=== PATIENT | female | born 1955 | race Caucasian/White ===

== ENCOUNTER → 2018-04-05 08:31 | Outpatient (CLI) | payer OTHER, SELFPAY | PROVIDERS: Family Provider Family Medicine; PCP Family Medicine; Visit Provider Obstetrics & Gynecology | DX: Z12.31 Encounter for screening mammogram for malignant neoplasm of breast (principal) | CPT/HCPCS: 77063; 77067 ==

== ENCOUNTER → 2018-05-04 09:29 | Outpatient (CLI) | payer OTHER, SELFPAY ==
[2018-05-04 12:19] LABS: Absolute Lymphocyte Count 0.92 X10^3/ul (0.83-4.51); Absolute Neutrophil Count 3.7 X10^3/uL (2.0-7.7); Basophil# 0.01 X10^3/uL; Basophil% 0.2 % (0-1); Eosinophil# 0.14 X10^3/uL; Eosinophils% 2.8 % (0-5); Hematocrit 36.9 % (37-47); Hemoglobin 12.2 g/dl (12.0-15.0); Lymphocyte # 0.92 X10^3/ul (4.0); Lymphocyte % 18.1 % (19-41); Mean Corp Hgb Conc 33.1 g/gl (32-36); Mean Corpuscular Hgb 31.3 pg (27.0-32.0); Mean Corpuscular Volume 94.6 fL (81-99); Mean Platelet Vol. 10.7 fl (6.2-12.0); Monocyte# 0.33 X10^3/uL; Monocyte% 6.5 % (0-10); Neutrophil # 3.69 X10^3/uL (2.7-7.7); Neutrophil % 72.4 % (47-70); Platelet Count 158 K/mm3 (150-450); RBC Distribution Width CV 12.7 % (11.6-14.6); RBC Distribution Width SD 42.9 fl (35.1-43.9); White Blood Count 5.1 K/mm3 (4.4-11.0)
[2018-05-04 12:20] LABS: POSITIVE COUNT NO; POSITIVE DIFFERENTIAL NO; POSITIVE MORPHOLOGY NO
[2018-05-04 12:28] LABS: Vitamin D,25 Hydroxy 44.3 ng/mL (29.95-100.01)
[2018-05-04 12:29] LABS: ALB/GLOB Ratio 1.1 RATIO (0.9-2.4); AST(SGOT) 33 U/L (15-37); Alanine Aminotransfer ALT/SGPT 25 U/L (13-56); Albumin, Serum 3.4 g/dL (3.2-5.0); Alkaline Phosphatase 76 U/L (45-117); Anion Gap 6 (5-15); BUN 18 mg/dL (7-18); BUN/Creat Ratio 20.5 RATIO (10-20); Calcium,Total 8.3 mg/dL (8.5-10.1); Chloride 108 mmol/L (98-107); Cholesterol 169 mg/dL (200); Creatinine, Serum 0.88 mg/dL (0.55-1.02); EST Glomerular Filtration Rate 69 mL/min (>60); Est Glom Filt Rate - Afr Amer 83 mL/min (>60); Globulin 3.2 g/dL (2.2-4.2); Glucose 81 mg/dL (74-106); High Density Lipoprotein 65 mg/dL; Potassium 3.8 mmol/L (3.5-5.1); Protein, Total 6.6 g/dL (6.4-8.2); Sodium Level 143 mmol/L (136-145); T4 Free Direct 1.18 ng/dL (0.76-1.46); Triglycerides 74 mg/dL; Very Low Density Lipoprotein 15 mg/dL (5-40)
[2018-05-05 09:01] LABS: Hep C Antibodies <0.1 s/co ratio (0.0-0.9)
== END ==
PROVIDERS: Family Provider Family Medicine; PCP Family Medicine; Visit Provider Family Medicine
DX: Z00.01 Encounter for general adult medical examination with abnormal findings (principal); I47.1 Supraventricular tachycardia; M81.0 Age-related osteoporosis without current pathological fracture; R53.83 Other fatigue
CPT/HCPCS: 36415; 80053; 80061; 82306; 84439; 84443; 85025; 86803

== ENCOUNTER → 2018-11-21 14:18 | Outpatient (CLI) | payer MEDICARE, BC, SELFPAY | PROVIDERS: Family Provider Family Medicine; PCP Family Medicine; Visit Provider Family Medicine | DX: J20.9 Acute bronchitis, unspecified (principal) | CPT/HCPCS: 87070; 87077; 87205; 87633 ==

== ENCOUNTER → 2019-04-09 | Outpatient (CLI) | payer MEDICARE, BC, SELFPAY ==
[2018-12-12 14:00] VITALS: BMI 18.7
--- NOTE | 2019-04-09 07:58 | BI_ITS ---
MAMMOGRAPHY - BILATERAL SCREENING REASON FOR EXAM: Female, 63 years old. Routine annual screening examination. PERTINENT HISTORY: Grandmother with breast cancer. Remote right stereotactic breast biopsy. TECHNIQUE: Digital bilateral breast ibrahima (3D mammographic acquisition) in the CC and MLO projections. 2-D mediolateral oblique (MLO) and craniocaudad (CC) views of both breasts were obtained. CAD: Full Field Digital Mammography with Computer Added Detection was performed. COMPARISON: Comparison is made with prior study April 05, 2018 and March 02, 2017. FINDINGS: Breast Composition: The breasts are extremely dense, which lowers the sensitivity of mammography. There are no dominant masses or suspicious calcifications. A tissue clip marker is seen in the deep upper lateral portion of the right breast. This is unchanged. No other significant abnormalities are identified. There has been no significant change since the prior study. BI/SCREEN MAMM (CAD) W/IBRAHIMA BILAT IMPRESSION: Stable bilateral screening mammogram. Yearly follow-up mammogram recommended. (A) ASSESSMENT CATEGORY: BIRADS Category 2: Benign. A letter regarding these results will be sent to the patient by the facility within 30 days. Approximately 10% of breast cancers are not detected by mammography. A normal mammogram should not delay biopsy of a clinically suspicious abnormality. [id number] Electronically Signed: Balbir Gamino, at 8:52 EDT , Service support ,
== END | disposition home or self-care (01) ==
LOC: OPBI 07:56
PROVIDERS: Family Provider Family Medicine; PCP Family Medicine; Referring Provider Obstetrics & Gynecology; Visit Provider Obstetrics & Gynecology
DX: Z12.31 Encounter for screening mammogram for malignant neoplasm of breast (principal)
CPT/HCPCS: 77063; 77067

== ENCOUNTER → 2019-05-25 12:16 | Outpatient (CLI) | payer MEDICARE, BC, SELFPAY ==
[2018-12-12 14:00] VITALS: BMI 18.7
[2019-05-25 12:46] LABS: Absolute Lymphocyte Count 1.26 X10^3/uL (0.83-4.51); Basophil# 0.02 X10^3/uL; Basophil% 0.3 % (0-1); Eosinophils% 1.5 % (0-5); Hematocrit 40.9 % (37-47); Hemoglobin 13.2 g/dL (12.0-15.0); Lymphocyte # 1.26 X10^3/ul (4.0); Lymphocyte % 18.7 % (19-41); Mean Corp Hgb Conc 32.3 g/dL (32-36); Mean Corpuscular Hgb 30.6 pg (27.0-32.0); Mean Corpuscular Volume 94.7 fL (81-99); Mean Platelet Vol. 10.3 fl (6.2-12.0); Monocyte% 4.5 % (0-10); NRBC Flagged by Analyzer 0 % (0-5); Neutrophil # 5.04 X10^3/uL (2.7-7.7); Neutrophil % 74.7 % (47-70); Platelet Count 171 K/mm3 (150-450); RBC Distribution Width CV 12.8 % (11.6-14.6); RBC Distribution Width SD 45.2 fl (35.1-43.9); Red Blood Count 4.32 M/mm3 (4.2-5.4); White Blood Count 6.7 K/mm3 (4.4-11.0)
[2019-05-25 13:37] LABS: ALB/GLOB Ratio 1.1 RATIO (0.9-2.4); AST(SGOT) 28 U/L (15-37); Alanine Aminotransfer ALT/SGPT 20 U/L (13-56); Albumin, Serum 3.8 g/dL (3.2-5.0); Alkaline Phosphatase 91 U/L (45-117); Anion Gap 4 (5-15); BUN 20 mg/dL (7-18); BUN/Creat Ratio 20.5 RATIO (10-20); Calcium,Total 9.6 mg/dL (8.5-10.1); Chloride 106 mmol/L (98-107); Cholesterol 206 mg/dL (200); Creatinine, Serum 0.98 mg/dL (0.55-1.02); EST Glomerular Filtration Rate 61 mL/min (>60); Est Glom Filt Rate - Afr Amer 73 mL/min (>60); Globulin 3.6 g/dL (2.2-4.2); Glucose 92 mg/dL (74-106); High Density Lipoprotein 79 mg/dL; Potassium 3.9 mmol/L (3.5-5.1); Protein, Total 7.4 g/dL (6.4-8.2); Sodium Level 140 mmol/L (136-145); Thyroid Stim Hormone (TSH) 2.34 uIU/mL (0.358-3.74); Triglycerides 116 mg/dL; Very Low Density Lipoprotein 23 mg/dL (5-40)
[2019-05-27 09:00] LABS: Vitamin D,25 Hydroxy 51.8 ng/mL (29.95-100.01)
== END ==
PROVIDERS: Family Provider Family Medicine; PCP Family Medicine; Referring Provider Family Medicine; Visit Provider Family Medicine
DX: E78.5 Hyperlipidemia, unspecified (principal); R53.83 Other fatigue; M81.0 Age-related osteoporosis without current pathological fracture
CPT/HCPCS: 36415; 80053; 80061; 82306; 84443; 85025

== ENCOUNTER → 2019-08-05 11:11 | Outpatient (CLI) | payer MEDICARE, BC, SELFPAY ==
[2018-12-12 14:00] VITALS: BMI 18.7
== END ==
PROVIDERS: Family Provider Family Medicine; PCP Family Medicine; Visit Provider Family Medicine
DX: J20.9 Acute bronchitis, unspecified (principal)
CPT/HCPCS: 87070; 87077; 87205; 87633

== ENCOUNTER → 2020-05-22 07:50 | Outpatient (CLI) | payer MEDICARE, BC, SELFPAY ==
[2019-12-13 13:18] VITALS: BMI 18.7
--- NOTE | 2020-05-22 08:09 | BI_ITS ---
MAMMOGRAPHY - BILATERAL SCREENING REASON FOR EXAM: Female, 64 years old. Routine annual screening examination. PERTINENT HISTORY: Grandmother with breast cancer. Remote right stereotactic breast biopsy. TECHNIQUE: Digital bilateral breast ibrahima (3D mammographic acquisition) in the CC and MLO projections. 2-D mediolateral oblique (MLO) and craniocaudad (CC) views of both breasts were obtained. CAD: Full Field Digital Mammography with Computer Added Detection was performed. COMPARISON: Comparison is made with prior study dated 04/09/2019 and 04/05/2018. FINDINGS: Breast Composition: The breasts are extremely dense, which lowers the sensitivity of mammography. There are no dominant masses or suspicious calcifications. A tissue clip marker is once again seen in the deep upper lateral aspect of No other significant abnormalities are identified. There has been no significant change since the prior study. BI/SCREEN MAMM (CAD) W/IBRAHIMA BILAT IMPRESSION: Stable bilateral screening mammogram. Yearly follow-up mammogram recommended. (A) ASSESSMENT CATEGORY: BIRADS Category 2: Benign. A letter regarding these results will be sent to the patient by the facility within 30 days. Approximately 10% of breast cancers are not detected by mammography. A normal mammogram should not delay biopsy of a clinically suspicious abnormality. [id number] Electronically Signed: Balbir Gamino, at 13:29 EDT , Service support ,
== END ==
PROVIDERS: PCP Family Medicine; Referring Provider Obstetrics & Gynecology; Visit Provider Obstetrics & Gynecology
DX: Z12.31 Encounter for screening mammogram for malignant neoplasm of breast (principal)
CPT/HCPCS: 77063; 77067

== ENCOUNTER → 2021-05-25 08:23 | Outpatient (CLI) | payer MEDICARE, BC, SELFPAY ==
--- NOTE | 2021-05-25 08:26 | BI_ITS ---
MAMMOGRAPHY - BILATERAL SCREENING REASON FOR EXAM: Female, 66 years old. Routine annual screening examination. PERTINENT HISTORY: Grandmother with breast cancer. Remote right stereotactic breast biopsy. TECHNIQUE: Digital bilateral breast ibrahima (3D mammographic acquisition) in the CC and MLO projections. 2-D mediolateral oblique (MLO) and craniocaudad (CC) views of both breasts were obtained. CAD: Full Field Digital Mammography with Computer Added Detection was performed. COMPARISON: Comparison is made with prior study to 05/22/2020 and 04/09/2019. FINDINGS: Breast Composition: The breasts are extremely dense, which lowers the sensitivity of mammography. There are no dominant masses or suspicious calcifications. A tissue clip marker is once again seen in the deep upper lateral aspect of the right breast. No other significant abnormalities are identified. There has been no significant change since the prior study. BI/SCRN MAMM (CAD)W/IBRAHIMA BILAT IMPRESSION: Stable bilateral screening mammogram. Yearly follow-up mammogram recommended. (A) ASSESSMENT CATEGORY: BIRADS Category 2: Benign. A letter regarding these results will be sent to the patient by the facility within 30 days. Approximately 10% of breast cancers are not detected by mammography. A normal mammogram should not delay biopsy of a clinically suspicious abnormality. [id number] Electronically Signed: Balbir Gamino MD at 9:21 EDT , Service support ,
== END ==
PROVIDERS: PCP Family Medicine; Referring Provider Obstetrics & Gynecology; Visit Provider Obstetrics & Gynecology
DX: Z12.31 Encounter for screening mammogram for malignant neoplasm of breast (principal)
CPT/HCPCS: 77063; 77067

== ENCOUNTER → 2021-07-06 09:37 | Outpatient (CLI) | payer MEDICARE, BC, SELFPAY ==
[2021-07-06 10:03] LABS: Absolute Lymphocyte Count 1.14 X10^3/uL (0.83-4.51); Absolute Neutrophil Count 4.8 X10^3/uL (2.0-7.7); Basophil# 0.04 X10^3/uL; Basophil% 0.6 % (0-1); Eosinophil# 0.15 X10^3/uL; Eosinophils% 2.3 % (0-5); Hematocrit 40.7 % (37-47); Lymphocyte # 1.14 X10^3/ul (0.83-4.51); Lymphocyte % 17.5 % (19-41); Mean Corp Hgb Conc 31.9 g/dL (32-36); Mean Corpuscular Hgb 30.7 pg (27.0-32.0); Mean Platelet Vol. 10.4 fl (6.2-12.0); Monocyte# 0.39 X10^3/uL; NRBC Flagged by Analyzer 0 % (0-5); Neutrophil # 4.79 X10^3/uL (2.7-7.7); Neutrophil % 73.3 % (47-70); Platelet Count 209 K/mm3 (150-450); RBC Distribution Width CV 12.8 % (11.6-14.6); RBC Distribution Width SD 45.7 fl (35.1-43.9); Red Blood Count 4.24 M/mm3 (4.2-5.4); White Blood Count 6.5 K/mm3 (4.4-11.0)
[2021-07-06 11:14] LABS: Anion Gap 6 (5-15); BUN 17 mg/dL (7-18); BUN/Creat Ratio 18.5 RATIO (10-20); Calcium,Total 8.9 mg/dL (8.5-10.1); Chloride 110 mmol/L (98-107); Creatinine, Serum 0.92 mg/dL (0.55-1.02); EST Glomerular Filtration Rate 65 mL/min (>60); Est Glom Filt Rate - Afr Amer 78 mL/min (>60); Free T3 2.8 pg/mL (2.18-3.98); Glucose 97 mg/dL (74-106); Magnesium 2.4 mg/dL (1.6-2.6); Potassium 4.1 mmol/L (3.5-5.1); Sodium Level 142 mmol/L (136-145); T4 Free Direct 1.08 ng/dL (0.76-1.46); Thyroid Stim Hormone (TSH) 2.41 uIU/mL (0.358-3.74)
== END ==
PROVIDERS: PCP Family Medicine; Referring Provider Nurse Practitioner Gerontology; Visit Provider Nurse Practitioner Gerontology
DX: R00.2 Palpitations (principal)
CPT/HCPCS: 36415; 80048; 83735; 84439; 84443; 84481; 85025

== ENCOUNTER → 2021-07-27 09:48 | Outpatient (CLI) | payer MEDICARE, BC, SELFPAY ==
--- NOTE | 2021-07-27 09:50 | ECHOD_ITS ---
Reason For Study: MVP Procedure This was a 2D Doppler, Color Flow transthoracic echocardiogram. Exam performed in department. Left Ventricle Normal LV size. Left ventricular systolic function is normal. The estimated ejection fraction is 60 %. No evidence for diastolic dysfunction. No regional wall motion abnormalities noted. Right Ventricle Normal RV size. Normal systolic function. Atria Normal left atrium. Normal right atrium. No doppler evidence for ASD. Mitral Valve There is no mitral annular calcification. Mild mitral valve prolapse, posterior leaflet. Mild (1+) mitral valve insufficiency. Tricuspid Valve Normal tricuspid valve. Trivial tricuspid valve insufficiency. Unable to estimate RV systolic pressure due to insufficient tricuspid regurgitant envelope. Aortic Valve Trisinus/trileaflet aortic valve. Mild diffuse aortic valve thickening. Pulmonic Valve The pulmonic valve is not well visualized. Great Vessels Normal sized aortic root. Pericardium/Pleural No pericardial effusion. MMode/2D Measurements & Calculations LVIDd: 4.7 cm IVSd: 0.80 cm Ao root diam: 2.6 cm LVIDs: 3.0 cm LVPWd: 0.72 cm RVDd: 2.8 cm FS: 36.4 % LAV(MOD-bp): 32.4 ml LVAd ap4: 22.7 cm2 LVAd ap2: 22.6 cm2 LAV(MOD-bp) Indexed: 21.4 ml/m2 LVLd ap4: 6.2 cm LVLd ap2: 6.2 cm LAV(MOD-sp2): 34.6 ml EDV(MOD-sp4): 71.2 ml EDV(MOD-sp2): 72.8 ml LAV(MOD-sp4): 30.0 ml EDV(sp4-el): 71.0 ml EDV(sp2-el): 70.1 ml LVAs ap4: 14.0 cm2 LVAs ap2: 12.4 cm2 LVLs ap4: 5.5 cm LVLs ap2: 5.1 cm ESV(MOD-sp4): 31.0 ml ESV(MOD-sp2): 25.7 ml ESV(sp4-el): 30.6 ml ESV(sp2-el): 25.3 ml EF(MOD-sp4): 56.4 % EF(MOD-sp2): 64.7 % EF(sp4-el): 56.9 % SV(MOD-sp4): 40.2 ml SV(MOD-sp2): 47.1 ml SV(sp4-el): 40.4 ml LA dimension(2D): 3.0 cm LA A4 area: 12.2 cm2 RA A4 area: 11.5 cm2 Doppler Measurements & Calculations MV E max jorge luis: 65.4 cm/sec Lat Peak E' Jorge Luis: 13.0 cm/sec Med Peak E' Jorge Luis: 7.3 cm/sec MV A max jorge luis: 50.3 cm/sec E/E' lat: 5.0 E/E' med: 8.9 MV E/A: 1.3 Ao V2 max: 131.2 cm/sec LV V1 max: 98.1 cm/sec PA V2 max: 73.2 cm/sec Ao max P.9 mmHg LV V1 max P.8 mmHg ECHO/Echo Complete Interpretation Summary Left ventricular systolic function is normal. The estimated ejection fraction is 60 %. Mild mitral valve prolapse, posterior leaflet Mild (1+) mitral valve insufficiency. Trivial tricuspid valve insufficiency. Mild diffuse aortic valve thickening. Unable to estimate RV systolic pressure due to insufficient tricuspid regurgita nt envelope. No evidence for diastolic dysfunction. Ordering Physician: Alexia Hairston Referring Physician: Jay Gallego Performed By: Rebecca Corbett RDCS
== END ==
PROVIDERS: PCP Family Medicine; Referring Provider Nurse Practitioner Gerontology; Visit Provider Nurse Practitioner Gerontology
DX: I34.1 Nonrheumatic mitral (valve) prolapse (principal)
CPT/HCPCS: 93225; 93226; 93306

== ENCOUNTER 2021-09-27 16:12 | Outpatient (CLI) | payer MEDICARE, BC, SELFPAY | END 2021-09-27 23:59 | disposition home or self-care (01) | PROVIDERS: PCP Family Medicine; Visit Provider Student in an Organized Health Care Education/Training Program | DX: N77.1 Vaginitis, vulvitis and vulvovaginitis in diseases classified elsewhere (principal) ==

== ENCOUNTER → 2022-06-07 | Outpatient (CLI) | payer MEDICARE, BC, SELFPAY ==
--- NOTE | 2022-06-07 08:08 | BI_ITS ---
MAMMOGRAPHY - BILATERAL SCREENING REASON FOR EXAM: Female, 67 years old. Routine annual screening examination. PERTINENT HISTORY: Grandmother with breast cancer. Prior right stereotactic breast biopsy. TECHNIQUE: Digital bilateral breast ibrahima (3D mammographic acquisition) in the CC and MLO projections. 2-D mediolateral oblique (MLO) and craniocaudad (CC) views of both breasts were obtained. CAD: Full Field Digital Mammography with Computer Added Detection was performed. COMPARISON: Comparison is made with prior study dated 05/25/2021 and 05/22/2020. FINDINGS: Breast Composition: The breasts are extremely dense, which lowers the sensitivity of mammography. There are no dominant masses or suspicious calcifications. A tissue clip marker is seen in the deep upper lateral aspect of the right breast. No other significant abnormalities are identified. There has been no significant change since the prior study. BI/SCRN MAMM (CAD)W/IBRAHIMA BILAT IMPRESSION: Stable bilateral screening mammogram. Yearly follow-up mammogram recommended. (A) ASSESSMENT CATEGORY: BIRADS Category 2: Benign. A letter regarding these results will be sent to the patient by the facility within 30 days. Approximately 10% of breast cancers are not detected by mammography. A normal mammogram should not delay biopsy of a clinically suspicious abnormality. [id number] Electronically Signed: Balbir Gamino MD at 8:37 EDT ,
== END | disposition home or self-care (01) ==
LOC: OPBI 08:07
PROVIDERS: PCP Family Medicine; Visit Provider Family Medicine
DX: Z12.31 Encounter for screening mammogram for malignant neoplasm of breast (principal); Z80.3 Family history of malignant neoplasm of breast
CPT/HCPCS: 77063; 77067

== ENCOUNTER → 2022-06-27 | Outpatient (CLI) | payer MEDICARE, BC, SELFPAY ==
[2022-06-27 12:23] LABS: Vitamin D,25 Hydroxy 39.2 ng/mL
[2022-06-27 12:26] LABS: ALB/GLOB Ratio 1.1 RATIO (0.9-2.4); AST(SGOT) 28 U/L (15-37); Alanine Aminotransfer ALT/SGPT 19 U/L (13-56); Albumin, Serum 3.6 g/dL (3.2-5.0); Alkaline Phosphatase 92 U/L (45-117); Anion Gap 8 (5-15); BUN 18 mg/dL (7-18); BUN/Creat Ratio 19.2 RATIO (10-20); Calcium,Total 9.1 mg/dL (8.5-10.1); Chloride 106 mmol/L (98-107); Cholesterol 210 mg/dL (200); Creatinine, Serum 0.94 mg/dL (0.55-1.02); EST Glomerular Filtration Rate 63 mL/min (>60); Est Glom Filt Rate - Afr Amer 76 mL/min (>60); Globulin 3.3 g/dL (2.2-4.2); Glucose 93 mg/dL (74-106); High Density Lipoprotein 75 mg/dL; Potassium 4.2 mmol/L (3.5-5.1); Protein, Total 6.9 g/dL (6.4-8.2); Sodium Level 141 mmol/L (136-145); Triglycerides 142 mg/dL; Very Low Density Lipoprotein 28 mg/dL (5-40)
[2022-06-27 12:38] LABS: Absolute Lymphocyte Count 1.16 X10^3/uL (0.83-4.51); Absolute Neutrophil Count 4.7 X10^3/uL (2.0-7.7); Basophil# 0.02 X10^3/uL; Basophil% 0.3 % (0-1); Eosinophil# 0.11 X10^3/uL; Eosinophils% 1.7 % (0-5); Hematocrit 39.1 % (37-47); Hemoglobin 13.1 g/dL (12.0-15.0); Lymphocyte # 1.16 X10^3/ul (0.83-4.51); Lymphocyte % 18.2 % (19-41); Mean Corp Hgb Conc 33.5 g/dL (32-36); Mean Corpuscular Hgb 31.6 pg (27.0-32.0); Mean Corpuscular Volume 94.4 fL (81-99); Mean Platelet Vol. 10.6 fl (6.2-12.0); Monocyte# 0.36 X10^3/uL; Monocyte% 5.7 % (0-10); NRBC Flagged by Analyzer 0 % (0-5); Neutrophil % 73.9 % (47-70); Platelet Count 208 K/mm3 (150-450); RBC Distribution Width CV 12.8 % (11.6-14.6); RBC Distribution Width SD 44.3 fl (35.1-43.9); Red Blood Count 4.14 M/mm3 (4.2-5.4); White Blood Count 6.4 K/mm3 (4.4-11.0)
== END | disposition home or self-care (01) ==
LOC: BFHLAB 10:32
PROVIDERS: PCP Family Medicine; Visit Provider Family Medicine
DX: E78.5 Hyperlipidemia, unspecified (principal); I47.1 Supraventricular tachycardia; E87.8 Other disorders of electrolyte and fluid balance, not elsewhere classified; Z51.81 Encounter for therapeutic drug level monitoring; M81.0 Age-related osteoporosis without current pathological fracture
CPT/HCPCS: 36415; 80053; 80061; 82306; 85025

== ENCOUNTER → 2022-07-07 | Outpatient (CLI) | payer MEDICARE, BC, SELFPAY ==
--- NOTE | 2022-07-07 10:22 | BD_ITS ---
STUDY: DUAL ENERGY X-RAY ABSORPTIOMETRY / DXA REASON FOR EXAM: Female, 67 years old. M810 TECHNIQUE: Bone Mineral Density (BMD) measurements of lumbar spine and bilateral hips were obtained. COMPARISON: Comparison is made with prior examination dated 12/24/2009. FINDINGS: Lumbar Spine (L1-L4): g/cm2 (0.844) / T-score (-2.1) / Z-score (0.0) Findings are suggestive of osteopenia with a moderate fracture risk. Left Femur Total: g/cm2 (0.593) / T-score (-2.9) / Z-score (-1.4) Left Femoral Neck: g/cm2 (0.546) / T-score (-2.7) / Z-score (-1.0) Right Femur Total: g/cm2 (0.621) / T-score (-2.6) / Z-score (-1.2) Right Femoral Neck: g/cm2 (0.575) / T-score (-2.5) / Z-score (0.7) Right Forearm: g/cm2 ( ) / T-score ( ) / Z-score ( ) Left Forearm: g/cm2 ( ) / T-score ( ) / Z-score ( ) The T-Scores on the most recent prior examination were: Lumbar Spine (L1-L4): There has been worsening of bone density since the previous examination. Left Femur Total: which represents a worsening of 8.2%. Right Femur Total: which represents a worsening of 4.2%. BD/Dexa Bone Density Study IMPRESSION: The patient is considered osteoporotic as outlined below according to World Jan Organization (WHO) criteria with a high fracture risk. There has been worsening of bone density since the previous examination. Reference Information: The T-score is the number of standard deviations above or below the standard which is normal for young adults at their peak bone mineral density. The World Health Organization (WHO) interprets the T-scores as follows: Above -1 Normal bone density Between -1 and -2.5 Osteopenia Equal to / or below -2.5 Osteoporosis As a practical clinical guideline, osteopenia may be graded as follows: Mild -1 through -1.5 Moderate -1.6 through -2.0 Severe -2.1 through -2.4 The Z-score is the number of standard deviations above or below age-matched controls. A Z-score of less than -1.5 would be considered abnormal. References: 1. NIH Osteoporosis and Related Bone Diseases www osteo.org 2. International Society for Clinical Densitometry www iscd.org 3. National Osteoporosis Foundation www nof.org Electronically Signed: Balbir Gamino MD at 9:46 EST ,
== END | disposition home or self-care (01) ==
LOC: OPBD 10:18
PROVIDERS: PCP Family Medicine; Referring Provider Family Medicine; Visit Provider Family Medicine
DX: M81.0 Age-related osteoporosis without current pathological fracture (principal)
CPT/HCPCS: 77080

== ENCOUNTER 2022-08-01 13:43 | Outpatient (CLI) | payer MEDICARE, BC, SELFPAY ==
--- NOTE | 2022-08-01 13:52 | CDU_ITS ---
Reason For Study: Carotid artery bruit Rt. Velocities/BP Lt. Velocities/BP Prox CCA 87.2/23.4 cm/sec. Prox CCA 91.2/20 cm/sec. Mid CCA 93.8/26.7 cm/sec. Mid CCA 72.8/20 cm/sec. Dist CCA 78.4/17.9 cm/sec. Dist CCA 64.2/18.8 cm/sec. Prox ICA 90.5/24.5 cm/sec. Prox ICA 79/20 cm/sec. Mid ICA 149.9/49 cm/sec. Mid ICA 82.6/29.8 cm/sec. Dist ICA 122.9/44.4 cm/sec. Dist ICA 112/27.9 cm/sec. Rt. ICA/CCA = 1.72. Lt. ICA/CCA = 1.54. Prox ECA 66.3/5.8 cm/sec. Prox ECA 99.2/13.3 cm/sec. Rt. Vert. 57.5/17.9 cm/sec. Lt. Vert. 70.7/14.6 cm/sec. Right Extracranial There is intimal thickening but no significant atherosclerotic plaque noted in the right common carotid artery. There is intimal thickening but no significant atherosclerotic plaque noted in the right internal carotid artery. There is intimal thickening but no significant atherosclerotic plaque noted in the right external carotid artery. Antegrade flow is noted in the right vertebral artery. Left Extracranial There is intimal thickening but no significant atherosclerotic plaque noted in the left common carotid artery. There is intimal thickening but no significant atherosclerotic plaque noted in the left internal carotid artery. There is intimal thickening but no significant atherosclerotic plaque noted in the left external carotid artery. Antegrade flow is noted in the left vertebral artery. Procedure Carotid Duplex 20125. This is a Carotid Duplex examination using B-mode, color flow and specral Doppler. Exam performed in department. VL/Carotid Duplex Ultrasound Interpretation Summary Normal right extracranial internal carotid. Elevated velocity with no visualize d plaque. Normal left extracranial internal carotid. Patent and antegrade vertebrals bilaterally. Ordering Physician: Panchito Drake Referring Physician: Jay Gallego Performed By: Marivel Valles RVT
== END 2022-08-01 23:59 | disposition home or self-care (01) ==
LOC: CVS 13:50
PROVIDERS: PCP Family Medicine; Visit Provider Internal Medicine Cardiovascular Disease
DX: R09.89 Other specified symptoms and signs involving the circulatory and respiratory systems (principal)
CPT/HCPCS: 93880

== ENCOUNTER → 2022-09-23 | Outpatient (CLI) | payer MEDICARE, BC, SELFPAY ==
[2022-09-23 12:27] LABS: ALB/GLOB Ratio 1.2 RATIO (0.9-2.4); AST(SGOT) 29 U/L (15-37); Alanine Aminotransfer ALT/SGPT 22 U/L (13-56); Albumin, Serum 3.9 g/dL (3.2-5.0); Alkaline Phosphatase 85 U/L (45-117); Anion Gap 7 (5-15); BUN 18 mg/dL (7-18); BUN/Creat Ratio 18.4 RATIO (10-20); Calcium,Total 9.8 mg/dL (8.5-10.1); Chloride 106 mmol/L (98-107); Creatinine, Serum 0.98 mg/dL (0.55-1.02); EST Glomerular Filtration Rate 60 mL/min (>60); Est Glom Filt Rate - Afr Amer 73 mL/min (>60); Globulin 3.2 g/dL (2.2-4.2); Glucose 94 mg/dL (74-106); Potassium 4.3 mmol/L (3.5-5.1); Protein, Total 7.1 g/dL (6.4-8.2); Sodium Level 143 mmol/L (136-145)
[2022-09-23 12:30] LABS: Vitamin D,25 Hydroxy 38.6 ng/mL
== END | disposition home or self-care (01) ==
LOC: BIMLAB 10:56
PROVIDERS: PCP Family Medicine; Referring Provider Internal Medicine Endocrinology, Diabetes & Metabolism; Visit Provider Internal Medicine Endocrinology, Diabetes & Metabolism
DX: M81.0 Age-related osteoporosis without current pathological fracture (principal); E59 Dietary selenium deficiency
CPT/HCPCS: 36415; 80053; 82306

== ENCOUNTER → 2022-09-30 | Outpatient (CLI) | payer MEDICARE, BC, SELFPAY ==
[2022-09-30 14:00] VITALS: BP 131/63; PULSE 70; RESP 16; TEMP 36.3; O2SAT 99; BMI 20.1
[2022-09-30] MEDS: 0.9% NaCl Peripheral Flush Adult/Peds IV (14:01)
[2022-09-30] MEDS: Zoledronic Acid 5 MG 100 ML 300 MG IV (14:06)
[2022-09-30 14:30] VITALS: BP 123/60; PULSE 72; RESP 16; TEMP 36.3; O2SAT 98
== END | disposition home or self-care (01) ==
LOC: MEDOUTP 13:49
PROVIDERS: PCP Family Medicine; Referring Provider Internal Medicine Endocrinology, Diabetes & Metabolism; Visit Provider Internal Medicine Endocrinology, Diabetes & Metabolism
DX: M81.0 Age-related osteoporosis without current pathological fracture (principal)
CPT/HCPCS: 96372; A4216; J3489

== ENCOUNTER 2022-10-01 20:19 | Emergency (ER) | payer MEDICARE, BC, SELFPAY ==
[2022-10-01] VITALS (15 sets, daily range): BP systolic 99–108; BP diastolic 55–64; PULSE 57–136; RESP 13–24; TEMP 36.1; O2SAT 95–99; BMI 21.4
--- NOTE | 2022-10-01 20:43 | EDS_ITS ---
HPI History of Present Illness Chief Complaint: Palpitations Detail of Chief Complaint: Rapid and irregular heartbeat Informant: patient Onset/Context/Timing Onset: Yesterday Context: Sudden Onset Timing: Continuous and Waxes and wanes Quality: Rapid and irregular Location: Chest Current Severity: Mild Maximum Severity: Mild Worsened by: Nothing Relieved by: Nothing Associated Symptoms Associated Symptoms: Lightheadedness Narrative Narrative: Patient is a 67-year-old woman with history of osteoporosis and received her first dose of Reclast. She states she was told that she may have flulike symptoms. There was no mention on the documentation was given regarding cardiac symptoms. She denies chest pressure, shortness of breath, dyspnea on exertion, orthopnea or PND. She denies nausea, diaphoresis or discomfort in her jaw, neck shoulders or upper extremities. She does have history of premature atrial contractions, palpitations, paroxysmal supraventricular tachycardia, pure hypercholesterolemia and left carotid bruit. As previously mentioned she received her first dose of medication for osteoporosis. Patient denies history of VTE. Patient denies leg pain, swelling discoloration. Patient has no risk factors for VTE Prior similar symptoms: Yes (Per documentation, old records) Recent Illness/Hospitalization: No PFSH PFS Medical History Hyperlipidemia Nonrheumatic mitral (valve) prolapse Osteoarthritis Osteoporosis PAC (premature atrial contraction) Palpitations Paroxysmal supraventricular tachycardia by electrocardiogram (ECG) Pure hypercholesterolemia Home Medications calcium phosphate 250 mg-vit D3 12.5 mcg (500 unit) chewable tablet 1 ea PO DAILY 07/18/17 [History Last Taken Unknown] nadolol 20 mg tablet See Rx Instructions .Route .COMPLEX #45 tabs 02/25/22 [Rx Last Taken Unknown] PB 8 probiotic PO 1XD 09/15/22 [History Last Taken Unknown] zoledronic acid 5 mg/100 mL in mannitol 5 %-water intravenous piggybck 1 ea .Route ONCE #100 mL 09/23/22 [Rx Last Taken Unknown] Allergy/AdvReac Type Severity Reaction Status Date / Time azithromycin Allergy Rash Verified 10/01/22 20:20 [From Zithromax Z-Bernard] clindamycin Allergy CDIFF Verified 10/01/22 20:20 Sulfa (Sulfonamide Allergy Rash Verified 10/01/22 20:20 Antibiotics) Family History Mother , CERVICAL Cancer Arthritis Depression Father Heart disease Grandmother Cancer Sister Cancer skin Surgical History History of bunionectomy of both great toes History of hysterectomy History of left heart catheterization (LHC) (~08/09/12) Social History (Updated 10/01/22 @ 20:[address] Salbador Rodriguez MD) household members: spouse Smoking Status: Never smoker alcohol intake: never substance use type: does not use caffeine: No what type of physical activity do you participate in: none seatbelt use: always do you feel safe at home: Yes ROS ROS ED Constitutional Constitutional ED: Denies chills, fever(s), subjective or sweats Eyes Eyes: Denies blurry vision, change in vision or diplopia ENT ENT ED: Denies ear pain, rhinorrhea or sore throat Cardiovascular Cardiovascular: Reports palpitations; Denies chest pain, orthopnea, paroxysmal nocturnal dyspnea or racing heartbeat Respiratory/Chest Respiratory/Chest: Denies cough, dyspnea, dyspnea on exertion, orthopnea or paroxysmal nocturnal dyspnea Gastrointestinal Gastrointestinal: Denies abdominal pain, melena, nausea or vomiting Genitourinary Genitourinary ED: Denies dysuria or hematuria Musculoskeletal Musculoskeletal: Denies arthralgias, back pain, myalgias or neck pain Integumentary Denies rash Neurologic Neurologic: Denies headache(s), paresthesias or weakness Endocrine Endocrinology: Denies cold intolerance or heat intolerance Hematologic/Lymphatic Hematologic/Lymphatic: Reports systems reviewed and no addt'l complaints, except as documented EXAM Physical Exam Const Vital Signs: 10/01/22 20:20 10/01/22 20:36 10/01/22 20:35 Temperature 97 F L Temperature Source Temporal Pulse Rate 57 L 104 H Respiratory Rate 14 22 H Respiratory Effort Normal Non-Labored Blood Pressure 104/64 Blood Pressure Mean 77 Pulse Ox 98 96 Oxygen Delivery Method Room Air 10/01/22 20:40 10/01/22 20:50 10/01/22 21:00 Temperature Temperature Source Pulse Rate 105 H 124 H 118 H Respiratory Rate 24 H 19 H 17 Respiratory Effort Blood Pressure Blood Pressure Mean Pulse Ox 97 97 95 Oxygen Delivery Method 10/01/22 21:01 10/01/22 21:10 10/01/22 21:21 Temperature Temperature Source Pulse Rate 105 H 136 H Respiratory Rate 21 H 18 Respiratory Effort Blood Pressure 99/63 108/55 L Blood Pressure Mean 75 72 Pulse Ox 96 95 Oxygen Delivery Method 10/01/22 21:32 10/01/22 21:40 10/01/22 21:50 Temperature Temperature Source Pulse Rate 113 H 105 H 105 H Respiratory Rate 13 16 17 Respiratory Effort Blood Pressure Blood Pressure Mean Pulse Ox 99 97 Oxygen Delivery Method 10/01/22 22:00 10/01/22 22:10 10/01/22 22:20 Temperature Temperature Source Pulse Rate 108 H 106 H 109 H Respiratory Rate 18 20 H 18 Respiratory Effort Blood Pressure Blood Pressure Mean Pulse Ox 95 96 96 Oxygen Delivery Method Positive well nourished and well developed General Appearance ED: well developed and NAD; Negative for cyanotic, diaphoretic or pallor HEENT Reports moist mucous membranes HEENT Narrative: Head is atraumatic normocephalic. Ears normal. Nares are patent. Posterior pharynx is unremarkable. Eyes PERRL and EOMs intact bilaterally General Eye ED: Negative for pale conjunctiva or scleral icterus Neck no lymphadenopathy, supple and no JVD Neck Narrative: Noted bruits noted on the left. Chest Wall inspection of chest normal and palpation of chest normal Resp normal respiratory effort and clear to auscultation bilaterally Cardio S1 normal heart sound, S2 normal heart sound and no murmurs Rate: tachycardic Rhythm: abnormal rhythm irregularly irregular GI normal to inspection, nondistended, normoactive bowel sounds, non-tender, non- distended and no masses; Negative for hepatosplenomegaly GI Narrative: There is no palpable pulsatile mass. There is no abdominal bruit. Back/Spine no CVA tenderness Back/Spine Narrative: Inspection of the back is unremarkable. Extremity normal to inspection Extremity Narrative: There is no asymmetry, swelling, discoloration, leg vein distention, palpable cords or tenderness along the distribution of the deep venous system. DP pulses 2+ and symmetric. Neuro oriented x3, CN's II-XII intact bilaterally and no sensory deficits noted Sensorium / Orientation: alert Psych mental status grossly normal Skin no wounds and skin turgor normal General Skin Exam: elasticity normal; Negative for jaundice or pallor MDM MDM MDM Narrative Medical decision making narrative: Monitor reveals fast irregular beat. Concerned this may represent paroxysmal atrial tachycardia versus supraventricular tachycardia. Will obtain CBC to rule out anemia. Basic metabolic panel to assess renal function electrolytes. EKG to rule out cardiac ischemia. Troponin was obtained as well. Since EKG reveals sinus tachycardia will obtain TSH and will treat with IV beta- rowdy Records from cardiology visits were reviewed. Patient does have history of left carotid bruit. She does have history of paroxysmal supraventricular tachycardia as well as palpitations. She is on nadolol one half tab daily. Patient did have a cardiac catheterization July 2012 at [facility] located in [facility]. This revealed no significant angiographic abnormalities. Patient had an echocardiogram performed July 27 2021. EF was 60%. Left ventricular function was normal. Unable to [place] left ventricular function. There was evidence of mitral valve prolapse, posterior leaflet and mild mitral valve insufficiency. Lab Data Attestation: I reviewed the patient's lab results. Lab results narrative: Hemogram is unremarkable. Basic metabolic panel is remarked for slight elevation creatinine of 1.06 with a GFR 55. Glucose is elevated 179. TSH is normal at 157. CO2 anion gap is normal. Patient was instructed to follow-up with her primary care doctor regarding her elevated blood sugar. She was instructed follow-up Dr. Drake because of the rapid heartbeat. Labs: Laboratory Results - last 24 hr 10/01/22 10/01/22 20:54 20:54 WBC 5.6 RBC 3.92 L Hgb 12.3 Hct 36.1 L MCV 92.1 MCH 31.4 MCHC 34.1 RDW Std Deviation 43.6 RDW Coeff of Zeenat 12.9 Plt Count 162 MPV 10.1 Sodium 144 Potassium 3.5 Chloride 108 H Carbon Dioxide 28.0 Anion Gap 8 BUN 23 H Creatinine 1.06 H Estim Creat Clear Calc 39.62 Est GFR (MDRD) Af Amer 66 Est GFR (MDRD) Non-Af 55 L BUN/Creatinine Ratio 21.7 H Glucose 179 H Calcium 8.6 Troponin I High Sens 6 TSH 1.57 Rhythm Strip Rhythm Strip: Sinus Tach (There are premature beats noted both atrial and ventricular. There was also a run of narrow complex tachycardia and may have represented paroxysmal supraventricular tachycardia versus paroxysmal atrial tachycardia. Rate was 130+.) EKG Initial EKG: Attestation: I personally reviewed and interpreted this EKG as follows: Interpretation: Sinus Tachycardia (Rate is 121. There are premature ventricular beats noted. WV interval is 192 ms. QRS duration 80 ms. QT duration 304 ms. Hobson is normal.) Treatment and Re-Evaluation Narrative: Patient was observed until 2024. Heart rate has improved after administration of IV metoprolol. Discharge Plan Triage Chief Complaint: Palpitations ED Provider: Salbador Rodriguez Dx/Rx/DC Orders Clinical Impression: Paroxysmal atrial tachycardia, Pure hypercholesterolemia, Bruit of left carotid artery, Osteoporosis, Palpitations, Orthostatic dizziness, Acute hyperglycemia Instructions: ED About Arrhythmias, ED Hyperglycemia New Susp Diabetes Prescriptions: No Action zoledronic fpls-cshomgss-spguh 5 mg/100 mL piggyback 1 ea .Route ONCE Qty: 100 0RF Rx Instructions: onceinfuse over 20 minutes PB 8 probiotic PO 1XD Rx Instructions: 2 tabs daily calcium phosphate-vitamin D3 1 EACH tablet,chewable 1 ea PO DAILY nadolol 20 mg tablet See Rx Instructions .ROUTE .COMPLEX Qty: 45 3RF Dose Instruction: TAKE 1/2 TABLET BY MOUTH DAILY Rx Instructions: TAKE 1/2 TABLET BY MOUTH DAILY Primary Care Provider: Jay Gallego Referrals: Jay Gallego DO [Primary Care Provider] - 5-7 Days Panchito Drake MD [Med Staff - Active Staff] - 5-7 Days Activity Restrictions/Additional Instructions: Increased nadolol from 1/2 tablet a day to 1 full tablet a day. Your blood sugar is elevated at 179. You will need to follow-up with Dr. Gallego for additional testing to evaluate for new onset diabetes. Disposition Disposition: Home, Self Care
--- NOTE | 2022-10-01 20:44 | EKG12_ITS ---
Test Reason : CP Blood Pressure : / mmHG Vent. Rate : 121 BPM Atrial Rate : 121 BPM P-R Int : 192 ms QRS Dur : 080 ms QT Int : 304 ms P-R-T Axes : 064 009 025 degrees QTc Int : 431 ms Sinus tachycardia with occasional Premature ventricular complexes Otherwise normal ECG Confirmed by ILEANA PAYNE, ANSON ([id number]), editor index APRIL VALDES ([id number]) on 10/03/2022 1:18:44 PM Referred By: BROOK Confirmed By:ANSON TEJEDA MD
[2022-10-01 21:11] LABS: Hematocrit 36.1 % (37-47); Hemoglobin 12.3 g/dL (12.0-15.0); Mean Corp Hgb Conc 34.1 g/dL (32-36); Mean Corpuscular Hgb 31.4 pg (27.0-32.0); Mean Corpuscular Volume 92.1 fL (81-99); Mean Platelet Vol. 10.1 fl (6.2-12.0); Platelet Count 162 K/mm3 (150-450); RBC Distribution Width CV 12.9 % (11.6-14.6); RBC Distribution Width SD 43.6 fl (35.1-43.9); Red Blood Count 3.92 M/mm3 (4.2-5.4); White Blood Count 5.6 K/mm3 (4.4-11.0)
[2022-10-01] MEDS: Metoprolol Tartrate 5 MG/5 ML Vial IV (21:33)
[2022-10-01 21:36] LABS: Anion Gap 8 (5-15); BUN 23 mg/dL (7-18); BUN/Creat Ratio 21.7 RATIO (10-20); Calcium,Total 8.6 mg/dL (8.5-10.1); Chloride 108 mmol/L (98-107); Creatinine, Serum 1.06 mg/dL (0.55-1.02); EST Glomerular Filtration Rate 55 mL/min (>60); Est Glom Filt Rate - Afr Amer 66 mL/min (>60); Estimated Creatinine Clearance 39.62 ml/min; Glucose 179 mg/dL (74-106); Potassium 3.5 mmol/L (3.5-5.1); Sodium Level 144 mmol/L (136-145); Thyroid Stim Hormone (TSH) 1.57 uIU/mL (0.358-3.74); Troponin-I HS 6 pg/mL (3.0-54.0)
== END 2022-10-01 22:48 | disposition home or self-care (01) ==
PROVIDERS: Emergency Provider Emergency Medicine; PCP Family Medicine; Visit Provider Emergency Medicine
DX: I47.1 Supraventricular tachycardia (principal); R73.9 Hyperglycemia, unspecified; R09.89 Other specified symptoms and signs involving the circulatory and respiratory systems; R42 Dizziness and giddiness; M81.0 Age-related osteoporosis without current pathological fracture; R00.2 Palpitations; I49.1 Atrial premature depolarization; I49.3 Ventricular premature depolarization; Z79.899 Other long term (current) drug therapy; M19.90 Unspecified osteoarthritis, unspecified site; E78.00 Pure hypercholesterolemia, unspecified
CPT/HCPCS: 80048; 84443; 84484; 85027; 93005; 96374; 99284; A4216

== ENCOUNTER → 2022-10-10 | Outpatient (CLI) | payer MEDICARE, BC, SELFPAY | END | disposition home or self-care (01) | LOC: PSN 08:57 | PROVIDERS: PCP Family Medicine; Visit Provider Nurse Practitioner Gerontology | DX: I47.1 Supraventricular tachycardia (principal); R00.2 Palpitations | CPT/HCPCS: 93225; 93226 ==

== ENCOUNTER → 2023-06-08 | Outpatient (CLI) | payer MEDICARE, BC, SELFPAY ==
--- NOTE | 2023-06-08 08:18 | BI_ITS ---
MAMMOGRAPHY - BILATERAL SCREENING REASON FOR EXAM: Female, 68 years old. Routine annual screening examination. PERTINENT HISTORY: Grandmother with breast cancer. Prior right stereotactic breast biopsy. TECHNIQUE: Digital bilateral breast ibrahima (3D mammographic acquisition) in the CC and MLO projections. 2-D mediolateral oblique (MLO) and craniocaudad (CC) views of both breasts were obtained. CAD: Full Field Digital Mammography with Computer Added Detection was performed. COMPARISON: Comparison is made with prior study dated June 07, 2022 and May 25, 2021. FINDINGS: Breast Composition: The breasts are extremely dense, which lowers the sensitivity of mammography. There are no dominant masses or suspicious calcifications. Tissue clip marker is seen in the deep upper lateral aspect of the No other significant abnormalities are identified. There has been no significant change since the prior study. BI/SCRN MAMM (CAD)W/IBRAHIMA BILAT IMPRESSION: Stable bilateral screening mammogram. Yearly follow-up mammogram recommended. (A) ASSESSMENT CATEGORY: BIRADS Category 2: Benign. A letter regarding these results will be sent to the patient by the facility within 30 days. Approximately 10% of breast cancers are not detected by mammography. A normal mammogram should not delay biopsy of a clinically suspicious abnormality. [id number] Electronically Signed: Balbir Gamino MD at 12:25 EDT ,
== END | disposition home or self-care (01) ==
PROVIDERS: PCP Family Medicine; Referring Provider Obstetrics & Gynecology; Visit Provider Obstetrics & Gynecology
DX: Z12.31 Encounter for screening mammogram for malignant neoplasm of breast (principal)
CPT/HCPCS: 77063; 77067

== ENCOUNTER → 2023-08-09 | Outpatient (CLI) | payer MEDICARE, BC, SELFPAY ==
--- NOTE | 2023-08-09 09:51 | RAD_ITS ---
INDICATION: LEFT HIP PAIN EXAMINATION/TECHNIQUE: X-RAY - XR Hip Unilateral with Pelvis when performed; 2-3 Views COMPARISON: FINDINGS: PELVIC BONES: No displaced fracture, destructive or sclerotic lesions. Note that overlapping bowel shadows may however obscure fine detail. Sacroiliac joints are unremarkable. No widening of the pubic symphysis. HIPS: The articular structures are unremarkable. No displaced fracture seen in this frontal view. SOFT TISSUES: No soft tissue swelling or gas. RAD/HIP, UNI W/ Pelvis 2-3 Views IMPRESSION: No evidence of displaced pelvic or hip fracture. Electronically Signed: Maty Mustafa MD at 23:14 EST Reading Location ID and State: [id number] / Tel , Service support ,
--- NOTE | 2023-08-09 09:51 | RAD_ITS ---
INDICATION: LEFT HIP PAIN EXAMINATION/TECHNIQUE: X-RAY - XR Spine Lumbar Min 4 Views COMPARISON: No relevant prior comparison study available FINDINGS: VERTEBRAE: Preserved vertebral body height. No fracture. No spondylolisthesis. Preservation of the normal lumbar lordosis. Mild diffuse facet arthropathy. Levoscoliosis. DISCS: Disc space narrowing at L1-L2. Prominent endplate osteophytes at the T12-L1 and L1-L2 levels. INCLUDED ABDOMEN: Included bowel gas pattern is non-obstructive. RAD/L/S Spine Min 4 Views IMPRESSION: No evidence of lumbar spinal fracture or spondylolisthesis. Moderate degenerative change of the upper lumbar spine. Electronically Signed: Albert Felix MD at 17:31 EST ,
== END | disposition home or self-care (01) ==
PROVIDERS: PCP Family Medicine; Referring Provider Family Medicine; Visit Provider Family Medicine
DX: M79.605 Pain in left leg (principal)
CPT/HCPCS: 72100; 72110; 73502

== ENCOUNTER → 2024-04-05 | Outpatient (CLI) | payer MEDICARE, BC, SELFPAY ==
--- NOTE | 2024-04-05 16:15 | MRI_ITS ---
STUDY: MRI LUMBAR SPINE WITHOUT CONTRAST REASON FOR EXAM: Female, 68 years old. LOW BACK AND L HIP PAIN, WORSENING WITH PT Lt hip pain x6-7 wks, NKi, scoliosis TECHNIQUE: Standardized fat and water weighted pulse sequences were obtained in the sagittal and axial planes. COMPARISON: X-ray the lumbar spine dated August 09, 2023 FINDINGS: Normal lumbar lordosis. Moderate levoscoliosis is present. No marrow edema or fracture or compression deformity is present. 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 Normal conus medullaris that terminates at the L1 level. T12-L1: Severe disc space narrowing with moderate Modic endplate degenerative signal. Diffuse disc osteophyte complex. Slight retrolisthesis of T12 on L1 of 2 to 3 mm. Mild right foraminal stenosis. Normal left neural foramen. Mild asymmetric facet joint hypertrophy. Normal central canal and bilateral lateral recesses. L1-2: Moderate to severe asymmetric disc space narrowing with a diffuse disc osteophyte complex in the midline and left side of the disc space as well as moderate Modic endplate degenerative signal. Retrolisthesis of L1 on L2 of 2 to 3 mm mild right foraminal stenosis with posterior nerve root impingement. Normal left neural foramen. Mild facet joint hypertrophy. Normal central canal and bilateral lateral recesses. L2-3: Minimal endplate spurring. Mild posterior disc space narrowing and annular bulging. Normal bilateral facet joints. Normal central canal and bilateral lateral recesses. Normal bilateral intervertebral neural foramina. L3-4: Diffuse disc desiccation and mild posterior disc space narrowing without bulging or herniation. Normal bilateral facet joints. Normal central canal and bilateral lateral recesses. Normal bilateral intervertebral neural foramina. L4-5: Normal endplates. Diffuse disc desiccation with mild asymmetric disc space narrowing and slight annular bulging eccentric to the left causing left lateral recess stenosis with nerve root impingement. Normal central canal and right lateral recess. Mild to moderate facet joint hypertrophy. Normal bilateral intervertebral neural foramina. L5-S1: Normal endplates. Diffuse disc desiccation with minimal asymmetric disc space narrowing and slight annular bulging. Normal bilateral facet joints. Normal central canal and bilateral lateral recesses. Normal bilateral intervertebral neural foramina. Normal visualized sacral ala. There is moderate paraspinal muscular atrophy. MRI/Spine Lumbar (Routine) IMPRESSION: 1. Multilevel degenerative changes, as described above. Electronically Signed: Jorge Winn MD at 9:23 EDT ,
== END | disposition home or self-care (01) ==
LOC: MRI 16:00
PROVIDERS: PCP Family Medicine; Referring Provider Family Medicine; Visit Provider Family Medicine
DX: M54.17 Radiculopathy, lumbosacral region (principal)
CPT/HCPCS: 72148

== ENCOUNTER → 2024-07-10 | Outpatient (CLI) | payer MEDICARE, BC, SELFPAY ==
--- NOTE | 2024-07-10 09:35 | BI_ITS ---
MAMMOGRAPHY - BILATERAL SCREENING REASON FOR EXAM: Female, 69 years old. Routine annual screening examination. PERTINENT HISTORY: Grandmother with breast cancer. History of remote right stereotactic breast biopsy. TECHNIQUE: Digital bilateral breast ibrahima (3D mammographic acquisition) in the CC and MLO projections. 2-D mediolateral oblique (MLO) and craniocaudad (CC) views of both breasts were obtained. CAD: Full Field Digital Mammography with Computer Added Detection was performed. COMPARISON: Comparison is made with prior study dated June 08, 2023 and June 07, 2022. FINDINGS: Breast Composition: The breasts are extremely dense, which lowers the sensitivity of mammography. There are no dominant masses or suspicious calcifications. A tissue clip marker is once again seen in the deep upper lateral aspect of the right breast. Tiny stable calcifications are seen at that site. No other significant abnormalities are identified. There has been no significant change since the prior study. BI/SCRN MAMM (CAD)W/IBRAHIMA BILAT IMPRESSION: Stable bilateral screening mammogram. Yearly follow-up mammogram recommended. (A) ASSESSMENT CATEGORY: BIRADS Category 2: Benign. A letter regarding these results will be sent to the patient by the facility within 30 days. Approximately 10% of breast cancers are not detected by mammography. A normal mammogram should not delay biopsy of a clinically suspicious abnormality. [id number] Electronically Signed: Balbir Gamino MD at 11:00 EST ,
--- NOTE | 2024-07-10 09:42 | BD_ITS ---
STUDY: DUAL ENERGY X-RAY ABSORPTIOMETRY / DXA REASON FOR EXAM: Female, 69 years old. Osteoporosis TECHNIQUE: Bone Mineral Density (BMD) measurements of lumbar spine and bilateral hips were obtained. COMPARISON: Comparison is made with prior study July 07, 2022. FINDINGS: Lumbar Spine (L1-L4): g/cm2 (0.848) / T-score (-2.3) / Z-score (0.0) Findings are suggestive of osteopenia with a high fracture risk. Left Femur Total: g/cm2 (0.596) / T-score (-2.8) / Z-score (-1.3) Left Femoral Neck: g/cm2 (0.508) / T-score (-3.1) / Z-score (-1.2) Right Femur Total: g/cm2 (0.635) / T-score (-2.5) / Z-score (-1.0) Right Femoral Neck: g/cm2 (0.524) / T-score (-2.9) / Z-score (-1.1) The T-Scores on the most recent prior examination were: Lumbar Spine (L1-L4): There has been improvement of bone density since the previous examination. Left Femur Total: which represents an improvement of 0.6%. Right Femur Total: which represents an improvement of 2.3%. BD/Dexa Bone Density Study IMPRESSION: The patient is considered osteoporotic as outlined below according to World Jan Organization (WHO) criteria with a high fracture risk. There has been improvement of bone density since the previous examination. Reference Information: The T-score is the number of standard deviations above or below the standard which is normal for young adults at their peak bone mineral density. The World Health Organization (WHO) interprets the T-scores as follows: Above -1 Normal bone density Between -1 and -2.5 Osteopenia Equal to / or below -2.5 Osteoporosis As a practical clinical guideline, osteopenia may be graded as follows: Mild -1 through -1.5 Moderate -1.6 through -2.0 Severe -2.1 through -2.4 The Z-score is the number of standard deviations above or below age-matched controls. A Z-score of less than -1.5 would be considered abnormal. References: 1. NIH Osteoporosis and Related Bone Diseases www osteo.org 2. International Society for Clinical Densitometry www iscd.org 3. National Osteoporosis Foundation www nof.org Electronically Signed: Balbir Gamino MD at 10:25 EST ,
== END | disposition home or self-care (01) ==
LOC: OPBD 09:35
PROVIDERS: PCP Family Medicine; Referring Provider Obstetrics & Gynecology; Visit Provider Obstetrics & Gynecology
DX: Z12.31 Encounter for screening mammogram for malignant neoplasm of breast (principal); Z80.3 Family history of malignant neoplasm of breast; M81.0 Age-related osteoporosis without current pathological fracture
CPT/HCPCS: 77063; 77067; 77080

== ENCOUNTER → 2024-07-18 | Outpatient (CLI) | payer MEDICARE, BC, SELFPAY ==
[2024-07-18 12:20] LABS: Absolute Lymphocyte Count 1.08 X10^3/uL (0.83-4.51); Absolute Neutrophil Count 3.1 X10^3/uL (2.0-7.7); Basophil# 0.02 X10^3/uL; Basophil% 0.4 % (0-1); Eosinophils% 2.2 % (0-5); Hematocrit 37.2 % (37-47); Hemoglobin 12.3 g/dL (12.0-15.0); Lymphocyte # 1.08 X10^3/ul (0.83-4.51); Lymphocyte % 23.3 % (19-41); Mean Corp Hgb Conc 33.1 g/dL (32-36); Mean Corpuscular Hgb 31.1 pg (27.0-32.0); Mean Corpuscular Volume 93.9 fL (81-99); Mean Platelet Vol. 10.5 fl (6.2-12.0); Monocyte# 0.33 X10^3/uL; Monocyte% 7.1 % (0-10); NRBC Flagged by Analyzer 0 % (0-5); Neutrophil # 3.09 X10^3/uL (2.7-7.7); Neutrophil % 66.8 % (47-70); Platelet Count 189 K/mm3 (150-450); RBC Distribution Width CV 12.5 % (11.6-14.6); Red Blood Count 3.96 M/mm3 (4.2-5.4); White Blood Count 4.6 K/mm3 (4.4-11.0)
[2024-07-18 12:37] LABS: ALB/GLOB Ratio 1.1 RATIO (0.9-2.4); AST(SGOT) 21 U/L (15-37); Alanine Aminotransfer ALT/SGPT 17 U/L (13-56); Albumin, Serum 3.6 g/dL (3.2-5.0); Alkaline Phosphatase 91 U/L (45-117); Anion Gap 6 (5-15); BUN 20 mg/dL (7-18); BUN/Creat Ratio 23.3 RATIO (10-20); Calcium,Total 8.9 mg/dL (8.5-10.1); Chloride 107 mmol/L (98-107); Cholesterol 231 mg/dL (200); Creatinine, Serum 0.86 mg/dL (0.55-1.02); EST Glomerular Filtration Rate 69 mL/min (>60); Est Glom Filt Rate - Afr Amer 84 mL/min (>60); Globulin 3.4 g/dL (2.2-4.2); Glucose 89 mg/dL (74-106); High Density Lipoprotein 76 mg/dL; Sodium Level 140 mmol/L (136-145); Triglycerides 124 mg/dL; Very Low Density Lipoprotein 25 mg/dL (5-40)
[2024-07-18 12:38] LABS: Vitamin D,25 Hydroxy 32.4 ng/mL
== END | disposition home or self-care (01) ==
LOC: BFHLAB 10:12
PROVIDERS: PCP Family Medicine; Referring Provider Family Medicine; Visit Provider Family Medicine
DX: D64.9 Anemia, unspecified (principal); M81.0 Age-related osteoporosis without current pathological fracture; E78.5 Hyperlipidemia, unspecified; Z51.81 Encounter for therapeutic drug level monitoring
CPT/HCPCS: 36415; 80053; 80061; 82306; 85025

== ENCOUNTER → 2024-12-20 | Outpatient (CLI) | payer MEDICARE, BC, SELFPAY ==
--- NOTE | 2024-12-20 12:23 | ECHOD_ITS ---
Reason For Study Reason For Study: NONRHEUMATIC MVP Procedure This was a 2D Doppler, Color Flow transthoracic echocardiogram. Exam performed in department. Left Ventricle Normal LV size. Left ventricular systolic function is normal. The left ventricular ejection fraction is 55 %. No regional wall motion abnormalities noted. Right Ventricle Normal RV size. Normal systolic function. Atria Normal left atrium. Normal right atrium. Mitral Valve Normal mitral valve. Mild (1+) eccentric mitral valve insufficiency. Tricuspid Valve Normal tricuspid valve. Aortic Valve Trisinus/trileaflet aortic valve. Pulmonic Valve Normal pulmonic valve. Great Vessels Normal aortic root. The pulmonary artery is normal size. Normal inferior vena cava. Pericardium/Pleural No pericardial effusion. MMode/2D Measurements & Calculations LVIDd: 4.3 cm IVSd: 0.85 cm Ao root diam: 3.1 cm LVIDs: 2.5 cm LVPWd: 0.87 cm RVDd: 2.6 cm FS: 41.3 % LAV(MOD-bp): 34.7 ml LVAd ap4: 20.7 cm2 LVAd ap2: 19.2 cm2 LAV(MOD-bp) Indexed: 23.4 ml/m2 LVLd ap4: 5.9 cm LVLd ap2: 6.1 cm LAV(MOD-sp2): 34.9 ml EDV(MOD-sp4): 59.2 ml EDV(MOD-sp2): 51.9 ml LAV(MOD-sp4): 25.9 ml EDV(sp4-el): 61.4 ml EDV(sp2-el): 51.7 ml LVAs ap4: 12.2 cm2 LVAs ap2: 11.1 cm2 LVLs ap4: 4.7 cm LVLs ap2: 4.4 cm ESV(MOD-sp4): 26.0 ml ESV(MOD-sp2): 22.6 ml ESV(sp4-el): 27.0 ml ESV(sp2-el): 23.5 ml EF(MOD-sp4): 56.2 % EF(MOD-sp2): 56.4 % EF(sp4-el): 56.1 % SV(MOD-sp4): 33.3 ml SV(MOD-sp2): 29.2 ml SV(sp4-el): 34.4 ml SI(MOD-sp4): 22.4 ml/m2 SI(MOD-sp2): 19.7 ml/m2 LA A4 area: 10.2 cm2 LA dimension(2D): 2.4 cm RA A4 area: 11.0 cm2 TAPSE: 1.7 cm Time Measurements MV dec time: 0.17 sec Doppler Measurements & Calculations MV E max jorge luis: 48.8 cm/sec Lat Peak E' Jorge Luis: 5.0 cm/sec Med Peak E' Jorge Luis: 4.6 cm/sec MV A max jorge luis: 61.7 cm/sec E/E' lat: 9.7 E/E' med: 10.5 MV E/A: 0.79 MV V2 max: 62.6 cm/sec MV P1/2t max jorge luis: 59.5 cm/sec Ao V2 max: 148.2 cm/sec MV max P.6 mmHg MV P1/2t: 50.4 msec Ao max P.8 mmHg MV V2 mean: 37.1 cm/sec Ao V2 mean: 99.6 cm/sec MV mean P.62 mmHg MV dec slope: 345.7 cm/sec2 Ao mean P.5 mmHg MV V2 VTI: 18.7 cm MVA(P1/2t): 4.4 cm2 Ao V2 VTI: 34.9 cm AV (velocity ratio): 0.67 LV V1 max: 110.4 cm/sec PA V2 max: 86.9 cm/sec LV V1 max P.9 mmHg PA V2 mean: 63.5 cm/sec PI dec slope: 146.8 cm/sec2 LV V1 mean P.3 mmHg LV V1 mean: 70.0 cm/sec LV V1 VTI: 23.5 cm ECHO/Echo Complete Interpretation Summary Normal LV size. Left ventricular systolic function is normal. No regional wall motion abnormalities noted. Mild (1+) eccentric mitral valve insufficiency. The left ventricular ejection fraction is 55 %. Ordering Physician: Ronald Saldana Referring Physician: Jay Gallego Performed By: Oriana Zhu, LUCERO, RVT
== END | disposition home or self-care (01) ==
LOC: CVS 12:23
PROVIDERS: PCP Family Medicine; Referring Provider Internal Medicine Cardiovascular Disease; Visit Provider Internal Medicine Cardiovascular Disease
DX: I34.1 Nonrheumatic mitral (valve) prolapse (principal)
CPT/HCPCS: 93306

== ENCOUNTER → 2025-07-11 | Outpatient (CLI) | payer MEDICARE, BC, SELFPAY ==
--- NOTE | 2025-07-11 08:45 | BI_ITS ---
EXAM: SCRN MAMM (CAD)W/IBRAHIMA BILAT DATE: 07/11/2025 CLINICAL HISTORY: F, Age 70 y/o , SCREEN FOR BREAST CANCER Remote right stereotactic breast biopsy. Grandmother with breast cancer. TECHNIQUE: Procedure Code: [id number] Modality: MG Procedure: SCRN MAMM (CAD)W/IBRAHIMA BILAT COMPARISON: Prior exam(s) dated July 10, 2024.. FINDINGS: TISSUE DENSITY: The breasts are extremely dense, which lowers the sensitivity of mammography. Bilateral Breast Mammographic Findings: No significant masses, calcifications or other abnormalities are identified. A tissue clip marker is once again seen in the deep upper lateral aspect of the right breast in keeping with prior biopsy. Stable vascular calcifications. No suspicious masses, areas of developing architectural distortion, or suspicious calcifications. There has been no significant interval change. BI/SCRN MAMM (CAD)W/IBRAHIMA BILAT IMPRESSION: Stable bilateral screening mammogram. OVERALL FINAL ASSESSMENT BI-RADS 2: BENIGN RECOMMENDATION: Routine annual follow-up in 1 Year Additional Recommendation none A letter with findings and recommendations will be mailed to the patient. Reading Location: [place] [id number]
== END | disposition home or self-care (01) ==
LOC: OPBI 08:32
PROVIDERS: PCP Family Medicine; Referring Provider Obstetrics & Gynecology; Visit Provider Obstetrics & Gynecology
DX: Z12.31 Encounter for screening mammogram for malignant neoplasm of breast (principal)
CPT/HCPCS: 77063; 77067

== ENCOUNTER → 2025-07-22 | Outpatient (CLI) | payer MEDICARE, BC, SELFPAY ==
[2025-07-22 12:08] LABS: Hematocrit 37.4 % (37-47); Hemoglobin 12.6 g/dL (12.0-15.0); Immature Granulocytes Count 0.020 X10^3/uL (0.0-0.0); Mean Corp Hgb Conc 33.7 g/dL (32-36); Mean Corpuscular Volume 92.6 fL (81-99); Mean Platelet Vol. 10.6 fl (6.2-12.0); NRBC Flagged by Analyzer 0 % (0-5); Platelet Count 192 K/mm3 (150-450); RBC Distribution Width CV 12.9 % (11.6-14.6); RBC Distribution Width SD 44.1 fl (35.1-43.9); Red Blood Count 4.04 M/mm3 (4.2-5.4); White Blood Count 6.6 K/mm3 (4.4-11.0)
[2025-07-22 13:24] LABS: AST(SGOT) 29 U/L (<=31); Alanine Aminotransfer ALT/SGPT 14 U/L (<=34); Albumin, Serum 4.2 g/dL (3.4-4.8); Alkaline Phosphatase 87 U/L (35-104); Anion Gap 12 (5-15); BUN 24 mg/dL (4-19); BUN/Creat Ratio 26.1 RATIO (10-20); Calcium,Total 9.4 mg/dL (7.6-11.0); Carbon Dioxide 25.8 mmol/L (21.0-32.0); Chloride 104 mmol/L (98-108); Cholesterol 240 mg/dL (<=200); Globulin 2.7 g/dL (2.2-4.2); Glucose 90 mg/dL (70-99); Low Density Lipoprotein Calc. 149 mg/dL; Potassium 4.3 mmol/L (3.3-5.1); Triglycerides 116 mg/dL; Very Low Density Lipoprotein 23 mg/dL (5-40); Vitamin D,25 Hydroxy 45.7 ng/mL (30-100); cholesterol:hdl ratio screen 3.41
== END | disposition home or self-care (01) ==
LOC: BFHLAB 09:34
PROVIDERS: PCP Family Medicine; Visit Provider Family Medicine
DX: E78.5 Hyperlipidemia, unspecified (principal); Z51.81 Encounter for therapeutic drug level monitoring; M81.0 Age-related osteoporosis without current pathological fracture
CPT/HCPCS: 36415; 80053; 80061; 82306; 85025